=== PATIENT | male | born 1960 | race Caucasian/White ===

== ENCOUNTER 2025-01-22 11:50 | Emergency (ER) | payer BC, MEDICARE ==
[2025-01-22] MEDS: cefTRIAXone 1 GM Vial IM ONE (12:42)
[2025-01-22] MEDS ORDERED: Lidocaine 1% 5 ML VIAL ONE (12:43)
== END 2025-01-22 12:54 | disposition home or self-care (01) ==
LOC: DL.ED 11:50
DX: M70.21 Olecranon bursitis, right elbow (principal); Y93.89 Activity, other specified
CPT/HCPCS: 96372; 99283; J0696